=== PATIENT | female | born 1960 | race African-American/Black ===

== ENCOUNTER 2016-08-22 01:10 | Emergency (ER) | payer OTHER ==
--- NOTE | ~2016-08-22 | CR72 ---
[facility] A Service of [facility] & [facility] / [facility] RADIOLOGY TEXT RESULTS PATIENT: JOSEP LEONE LOCATION: [facility] : 58 UNIT #: [id number] AGE: [address]: Chary Maya MD SEX: F ORDER DR: [id number] [facility] [address] [place], [place] [address] [id number] MR#: [id number] Acc #: [id number] NAME: JOSEP LEONE : 1960 SEX: F STUDY DATE/TIME: 08/22/2016 1:01 UNIT: [facility] ROOM: STUDY DESCRIPTION: CR Chest Single View Portable Attending Physician: Chary Maya M.D. Ordering Physician: Chary Maya M.D. Primary Care Physician: Yanely Ash M.D. MEDICAL IMAGING REPORT This report is preliminary unless electronic signature is present EXAM AP portable chest 08/22/2016 HISTORY 55-year-old female in the ED with acute onset mental status changes. Decreased level of consciousness. Short of air. TECHNIQUE AP portable chest x-ray. FINDINGS The exam shows no active disease in the chest. Mild cardiomegaly. Pulmonary vascularity is normal. The lungs appear clear. No visible pleural effusion. IMPRESSION No active disease. Dictated by... Vinny Ochoa M.D. THIS IS AN ELECTRONICALLY VERIFIED REPORT Vinny Ochoa M.D. at 08/22/2016 9:53 PM STEPHANIE/sergey TD: 08/22/2016 07:08 JOB #: [id number] MEDICAL IMAGING REPORT Page 1 of 1 COPY
[~2016-08-22 01:10] MED LIST: ACETAMINOPHEN PO; ADVAIR 2501 DISK W/D PO; ADVAIR HFA 115/12 GM INH; ALBUTEROL 0.5ML INH; ALBUTEROL MININEB NEB; ALBUTEROL0.83 MG/ML INH; ALBUTEROL1.25 MG/3 IH; ALBUTEROL17 GM INH; ATIVAN PO; ATIVAN0.5 MG PO; ATROVENT HFA12.9 GM INH; CARDIZEM CD; COMBIVENT INH14.7 GM INH; COMBIVENT U/D3 ML INH; COREG PO; DARVOCET-N 1001 TAB PO; DOXYCYCLINE; DOXYCYCLINE PO; FAMOTIDINE PO; FORADIL12 MCG NEB; HALDOL PO; HOME OXYGEN; LASIX; LAXATIVE OF CHOICE; LORAZEPAM1 MG PO; MACROBID100 MG PO; MEDROL DOSEPAK4 MG PO; MEDROL PO; MUCINEX DM1 TAB.SR . PO; NITROGYLCERIN; NITROGYLCERIN SUBLINGUAL; NORVASC PO; OXYGEN; PEPCID AC20 MG PO; PERFOROMIS20 MCG/2 M IH; PERFOROMIST NEB; PREDNISONE PO; PREDNISONE10 MG PO; PROAIR HFA8.5 GM IH; PROAIR INHALER; PROVENTIL17 GM IH; PULMICORT NEB; PULMICORT0.5 MG/2 M IH; QVAR7.3 G1 IH; QVAR7.3 G1 INH; QVAR7.3 GM INH; SINGULAIR PO; SYNTHROID PO; SYNTHROID0.1 MG PO; SYNTHROID88 MCG PO; VIBRAMYCIN100 M1 PO; VICODIN PO; ZITHROMAX PO; ZOFRAN PO; [UNRECOGNIZED DRUG - REMARK]
== END 2016-08-22 03:44 | disposition home or self-care (01) ==
LOC: CED 01:10
DX: J45.901 Unspecified asthma with (acute) exacerbation (principal); I10 Essential (primary) hypertension; F17.210 Nicotine dependence, cigarettes, uncomplicated; Z79.899 Other long term (current) drug therapy; Z88.0 Allergy status to penicillin; Z88.5 Allergy status to narcotic agent; Z88.6 Allergy status to analgesic agent; Z88.8 Allergy status to other drugs, medicaments and biological substances; Z91.040 Latex allergy status; Z91.012 Allergy to eggs
CPT/HCPCS: 71010; 99283

== ENCOUNTER 2017-02-17 01:16 | Emergency (ER) | payer OTHER ==
--- NOTE | ~2017-02-17 | CR72 ---
[facility] A Service of [facility] & [facility] RADIOLOGY TEXT RESULTS PATIENT: JOSEP LEONE LOCATION: [facility] : 58 UNIT #: [id number] AGE: [address]: DAMON HUGGINS APRN SEX: F ORDER DR: [id number] [facility] [address] [place], [place] [address] [id number] E MR#: [id number] Acc #: [id number] NAME: JOSEP LEONE : 1960 SEX: F STUDY DATE/TIME: 02/17/2017 2:08 UNIT: [facility] ROOM: STUDY DESCRIPTION: CR Chest Single View Portable Attending Physician: Damon Huggins Aprn Ordering Physician: Damon Huggins Aprn Primary Care Physician: Tito Faria M.D. MEDICAL IMAGING REPORT This report is preliminary unless electronic signature is present EXAM Chest x-ray 02/17/2017 HISTORY 56-year-old female in the ED complaining of 2-week history of shortness of air and cough. TECHNIQUE AP portable chest x-ray. FINDINGS Heart size and pulmonary vascularity are within normal limits. The lungs are expanded and clear. No visible pulmonary infiltrate or pleural effusion. No change since 08/22/2016. IMPRESSION No active disease. No change since 08/22/2016. Dictated by... Vinny Ochoa M.D. THIS IS AN ELECTRONICALLY VERIFIED REPORT Vinny Ochoa M.D. at 02/18/2017 2:44 AM STEPHANIE/sergey TD: 02/17/2017 13:08 JOB #: [id number] MEDICAL IMAGING REPORT Page 1 of 1 COPY
--- NOTE | ~2017-02-17 | EKG ---
PATIENT: JOSEP LEONE UNIT #: [id number] Ventricular Rate: 83 BPM Atrial Rate: 83 BPM P-R Interval: 182 ms QRS Duration: 92 ms Q-T Interval: 394 ms QTC Calculation(Bezet): 462 ms P [place]: 43 degrees Calculated R [place]: -18 degrees Calculated T [place]: -8 degrees Diagnosis Line: Normal sinus rhythm Diagnosis Line: Minimal voltage criteria for LVH, may be normal Diagnosis Line: variant Diagnosis Line: Borderline ECG Diagnosis Line: No previous ECGs available Diagnosis Line: Confirmed by GUZMAN DONIS MD ([id number]) on Diagnosis Line: 02/17/2017 8:06:20 AM INTERPRETING MD: JEWELS DING
[2017-02-17 02:20] LABS: BASOPHIL# 0.1 X10e3 (0-0.3); BASOPHIL% 1.1 % (0-2.5); EOSINOPHIL# 0.2 X10e3 (0-0.7); EOSINOPHIL% 2.8 % (0.0-7.0); HEMATOCRIT 27.8 % (35.0-45.0); HEMOGLOBIN 8.5 gm/dL (12.0-16.0); LYMPHOCYTE% 33.7 % (17.0-45.0); MEAN CELL VOLUME 73.2 FL (83-96); MEAN CORPUSCULAR HEMOGLOBIN 22.3 PG (28-34); MEAN CORPUSCULAR HGB CONC 30.5 g/dL (30-36); MEAN PLATELET VOLUME 8.7 FL (6.5-11.5); MONOCYTE# 0.4 X10e3 (0-1.0); MONOCYTE% 7.4 % (3.0-12.0); NEUTROPHIL# 3.2 X10e3 (1.5-7.1); PLATELET COUNT 216 X10e3 (140-420); RED CELL DISTRIBUTION WIDTH 20.6 % (11.0-15.5); WHITE BLOOD COUNT 5.9 X10e3 (4.0-10.5)
[2017-02-17 02:21] LABS: DIFF IND NO
[2017-02-17 02:33] LABS: POC - CKMB 5.2 ng/mL (0.0-7.9); POC - TROPONIN <0.05 ng/mL (<=0.05)
[2017-02-17 02:48] LABS: ALBUMIN SERUM 4.5 g/dL (3.5-5.0); BILIRUBIN, DIRECT 0.1 mg/dL (0.0-0.2); BILIRUBIN,INDIRECT 0.2 mg/dL (0.0-0.9); BILIRUBIN,TOTAL 0.3 mg/dL (0.2-2.0); BUN/CREATININE RATIO 16.25; CALCIUM SERUM 9.1 mg/dL (8.4-10.2); CREATININE SERUM 0.8 mg/dL (0.6-1.4); GLOM FILT RATE Estimated 94.9 mL/min (>60); POTASSIUM 3.8 mmol/L (3.5-5.1); PROTEIN TOTAL SERUM 7.7 g/dL (6.0-8.3)
== END 2017-02-17 04:20 | disposition short-term general hospital (02) ==
LOC: CED 01:16
PROVIDERS: Nurse Practitioner Family
DX: J45.901 Unspecified asthma with (acute) exacerbation (principal); D53.9 Nutritional anemia, unspecified; R03.0 Elevated blood-pressure reading, without diagnosis of hypertension; F17.200 Nicotine dependence, unspecified, uncomplicated; Z91.14 Patient's other noncompliance with medication regimen; Z90.710 Acquired absence of both cervix and uterus; Z79.899 Other long term (current) drug therapy; Z91.041 Radiographic dye allergy status; Z88.6 Allergy status to analgesic agent; Z88.0 Allergy status to penicillin; Z88.5 Allergy status to narcotic agent; Z88.1 Allergy status to other antibiotic agents; Z91.040 Latex allergy status; Z91.012 Allergy to eggs; Z88.8 Allergy status to other drugs, medicaments and biological substances
CPT/HCPCS: 36415; 71010; 80048; 80076; 82553; 84484; 85025; 93005; 94640; 96374; 99285; J2930